=== PATIENT | female | born 1990 | race Caucasian/White ===

== ENCOUNTER 2016-10-30 19:38 | Emergency (ER) | payer OTHER ==
[~2016-10-30] VITALS: Ht 167.6 cm; Wt 117.5 kg
[~2016-10-30 19:38] MED LIST: RANI150 PO
[2016-10-30 19:42] VITALS: BP 129/80; PULSE 99; RESP 18; TEMP 98; O2SAT 98
[2016-10-30 20:03] VITALS: BP 120/80; PULSE 99; RESP 18; TEMP 98; O2SAT 98
[2016-10-30] MEDS ORDERED: PENI250T59 PO (20:03)
[2016-10-30] MEDS ORDERED: ONDANSETRON HCL 4 MG/2 ML VIAL IV PUSH ONE ×2 (20:15→21:45)
[2016-10-30] MEDS ORDERED: SODIUM CHLOR 0.9% 1000 ML INJ 1,000 ML IV ONE ×2 (20:15→23:00)
[2016-10-30] MEDS ORDERED: SODIUM CHLORIDE 0.9% FLUSH 10 ML FLUSH IVF PRN ×2 (20:15→21:15)
[2016-10-30 20:49] LABS: AUTOMATED NEUTROPHIL # 13.5 TH/MM3 (1.8-7.7); BASOPHIL # 0.3 TH/MM3 (0-0.2); EOSINOPHIL # 0.2 TH/MM3 (0-0.4); EOSINOPHIL % 1.4 % (0.0-4.0); HEMATOCRIT 45.8 % (35.0-46.0); LYMPH % 12.4 % (9.0-44.0); LYMPHOCYTE # 2.1 TH/MM3 (1.0-4.8); MEAN CELL VOLUME 79.8 FL (80.0-100.0); MEAN CORPUSCULAR HEMOGLOBIN 25.9 PG (27.0-34.0); MEAN CORPUSCULAR HGB CONC 32.5 % (32.0-36.0); MONO % 4.6 % (0.0-8.0); NEUT % 79.6 % (16.0-70.0); PLATELET COUNT 276 TH/MM3 (150-450); RED BLOOD COUNT 5.74 MIL/MM3 (4.00-5.30); RED CELL DISTRIBUTION WIDTH 12.5 % (11.6-17.2); WHITE BLOOD COUNT 16.9 TH/MM3 (4.0-11.0)
[2016-10-30 20:50] LABS: BLOOD, URINE NEG (NEG); GLUCOSE,URINE NEG (NEG); KETONE, URINE NEG (NEG); NITRITE,URINE NEG (NEG); PH, URINE 5.5 (5.0-8.5)
[2016-10-30 20:51] LABS: HEMO FLAGS DIFF FINAL
[2016-10-30 20:56] LABS: MUCUS URINE FEW /lpf (OCC); SQUAMOUS EPITHELIAL CELL URINE 0-5 /hpf (0-5); URINE COLOR YELLOW (YELLW/STRAW)
[2016-10-30 20:57] LABS: COMMENT (UR) CULT NOT INDICATED; CULTURE IF INDICATED CULT NOT INDICATED; WBC, URINE 0-2 /hpf (0-5)
[2016-10-30 20:58] LABS: POTASSIUM 3.5 MEQ/L (3.5-5.1)
[2016-10-30 21:01] LABS: BICARBONATE 21.7 MEQ/L (21.0-32.0)
--- NOTE | 2016-10-30 21:04 | PD ---
HPI Chief Complaint: GI Complaint Time Seen by Provider: 20:01 Travel History International Travel<30 days: No Contact w/Intl Traveler<30days: No Traveled to known affect area: No History of Present Illness HPI 26-year-old female presents to the emergency department for complaint of progressive worsening sore throat 3 weeks. Patient was recently seen at urgent care and prescribed amoxicillin for pharyngitis/sinusitis. Patient states that significant other has similar symptoms that resolved and child had similar symptoms also resolved. Patient was told to not have the flu. Patient states that she has had increasing pain with swallowing but does not report any difficulty with swallowing or any breathing issues and has had no hoarseness or stridor. Patient states that she feels like the soft tissue under her neck is swollen. Patient's had no fever or chills. Patient now with new complain of nausea and vomiting. She denies any abdominal pain. No diarrhea. Nausea and vomiting developed today complains of generalized weakness and fatigue. No report of dietary indiscretion well water ingestion or foreign travel. Pain is reported as 10 over 10 intensity. [id number] medications are provided any relief. Patient is unable to identify exacerbating or alleviating factors. Patient does report however that nausea vomiting began approximately 4 hours after eating a [employer] sandwich and vomited all of her stomach contents consistent with recent dietary intake no hematemesis coffee-ground emesis or bilious emesis. Patient has vomited 3-4 times. No hematemesis or coffee- ground emesis no bilious emesis. No diarrhea no melena hematochezia. Patient denies . Patient states she is very upset because at urgent care they told her all of her symptoms related to seasonal and environmental allergies and that she just wasn't aware of how bad her rhinosinusitis seasonal environmental allergy symptoms were. [facility] Past Medical History Narrative Medical Ovarian cyst, mononucleosis; tobacco use; nursing notes reviewed Hx Anticoagulant Therapy: No Cardiovascular Problems: No Chemotherapy: No Diabetes: No Diminished Hearing: No Respiratory: No Immunizations Current: Yes Tetanus Vaccination: Unknown Influenza Vaccination: No ?: Not LMP: 2 WEEKS AGO Ovarian Cysts: Yes Past Surgical History Hysterectomy: No Social History Alcohol Use: No Tobacco Use: Yes (1/2-1PPD) Substance Use: No Allergies-Medications (Allergen,Severity, Reaction): Coded Allergies: Erythromycin (Verified Allergy, Severe, HIVES, 10/30/16) Reported Meds & Prescriptions Reported Meds & Active Scripts Active Phenergan Supp (Promethazine HCl) 25 Mg Supp 25 Mg RECTAL Q6H PRN Zofran Odt (Ondansetron Odt) 4 Mg Tab 4 Mg SL Q6HR PRN Reported Penicillin Vk (Penicillin V Potassium) 250 Mg Tab 250 Mg PO Q6H Review of Systems Except as stated in HPI: all other systems reviewed are Neg General / Constitutional: No: Fever, Chills HENT: Positive: Sore Throat, No: Congestion Cardiovascular: No: Chest Pain or Discomfort Respiratory: No: Shortness of Breath Gastrointestinal: Positive: Nausea, Vomiting, No: Diarrhea, Abdominal Pain, Hematemesis, Hematochezia, Loss of Appetite Genitourinary: No: Urgency, Frequency, Dysuria, Pelvic Pain, Flank Pain Musculoskeletal: No: Myalgias, Arthralgias Skin: No Rash Neurologic: No: Weakness Hematologic/Lymphatic: No: Lymph Node Enlargement Physical Exam Narrative GENERAL: Well-developed well-nourished female in no acute distress no respiratory distress; no stridor no hoarseness. SKIN: Warm and dry. HEAD: Normocephalic. EYES: No scleral icterus. No injection or drainage. ENT: Mucous members moist airway is patent mild erythema and exudative change; bilateral tympanic membranes no redness no dullness to loss of landmarks no perforation NECK: Supple, trachea midline. No nuchal rigidity no meningismus. No JVD no submandibular or anterior neck mass except for some mild anterior cervical chain puller shoddy lymphadenopathy. CARDIOVASCULAR: Regular rate and rhythm without murmurs, gallops, or rubs. RESPIRATORY: Breath sounds equal bilaterally. No accessory muscle use. GASTROINTESTINAL: Abdomen soft, non-tender, nondistended. MUSCULOSKELETAL: No cyanosis, or edema. BACK: Nontender without obvious deformity. No CVA tenderness. Data Data Last Documented VS Vital Signs Date Time Temp Pulse Resp B/P Pulse Ox O2 Delivery O2 Flow Rate FiO2 10/30/16 23:20 98.0 69 18 129/75 96 Room Air Orders Basic Metabolic Panel (Bmp) (10/30/16 20:01) Complete Blood Count With Diff (10/30/16 20:01) Group A Rapid Strep Screen (10/30/16 20:01) Iv Access Insert/Monitor (10/30/16 20:01) Sodium Chloride 0.9% Flush (Ns Flush) (10/30/16 20:15) Sodium Chlor 0.9% 1000 Ml Inj (Ns 1000 M (10/30/16 20:15) Ondansetron Inj (Zofran Inj) (10/30/16 20:15) Urinalysis - C+S If Indicated (10/30/16 20:01) Ed Urine Pregnancytest Poc (10/30/16 20:01) Ct Soft Tiss Neck W Iv Cont (10/30/16 21:04) Sodium Chloride 0.9% Flush (Ns Flush) (10/30/16 21:15) Strep Culture (Group A) (10/30/16 20:35) Ondansetron Inj (Zofran Inj) (10/30/16 21:45) Iohexol 350 Inj (Omnipaque 350 Inj) (10/30/16 22:58) Promethazine Supp (Phenergan Supp) (10/30/16 23:00) Sodium Chlor 0.9% 1000 Ml Inj (Ns 1000 M (10/30/16 23:00) Ketorolac Inj (Toradol Inj) (10/30/16 23:00) Labs Laboratory Tests Test 10/30/16 10/30/16 20:30 20:40 White Blood Count 16.9 TH/MM3 Red Blood Count 5.74 MIL/MM3 Hemoglobin 14.9 GM/DL Hematocrit 45.8 % Mean Corpuscular Volume 79.8 FL Mean Corpuscular Hemoglobin 25.9 PG Mean Corpuscular Hemoglobin 32.5 % Concent Red Cell Distribution Width 12.5 % Platelet Count 276 TH/MM3 Mean Platelet Volume 8.5 FL Neutrophils (%) (Auto) 79.6 % Lymphocytes (%) (Auto) 12.4 % Monocytes (%) (Auto) 4.6 % Eosinophils (%) (Auto) 1.4 % Basophils (%) (Auto) 2.0 % Neutrophils # (Auto) 13.5 TH/MM3 Lymphocytes # (Auto) 2.1 TH/MM3 Monocytes # (Auto) 0.8 TH/MM3 Eosinophils # (Auto) 0.2 TH/MM3 Basophils # (Auto) 0.3 TH/MM3 CBC Comment DIFF FINAL Differential Comment Sodium Level 141 MEQ/L Potassium Level 3.5 MEQ/L Chloride Level 107 MEQ/L Carbon Dioxide Level 21.7 MEQ/L Anion Gap 12 MEQ/L Blood Urea Nitrogen 14 MG/DL Creatinine 0.88 MG/DL Estimat Glomerular Filtration 77 ML/MIN Rate Random Glucose 108 MG/DL Calcium Level 9.1 MG/DL Urine Color YELLOW Urine Turbidity CLEAR Urine pH 5.5 Urine Specific [place] 1.029 Urine Protein 30 mg/dL Urine Glucose (UA) NEG mg/dL Urine Ketones NEG mg/dL Urine Occult Blood NEG Urine Nitrite NEG Urine Bilirubin NEG Urine Leukocyte Esterase NEG Urine WBC 0-2 /hpf Urine Squamous Epithelial 0-5 /hpf Cells Urine Amorphous Sediment SMALL Urine Mucus FEW /lpf Microscopic Urinalysis Comment CULT NOT INDICATED MDM Medical Decision Making Medical Screen Exam Complete: Yes Emergency Medical Condition: Yes Medical Record Reviewed: Yes Interpretation(s) Last Impressions Neck CT 10/30/162103 Signed Impressions: Service Date/Time: Sunday, October 30, 2016 22:12 - CONCLUSION: Left jugulodigastric lymph node is prominent but nonspecific and measures 2.0 x 1.5 cm. Prominent tonsillar pillars bilaterally raising the possibility of tonsillitis. Clinical correlation is recommended. Adilson Rosas MD CBC & BMP Diagram 10/30/16 20:30 Vital Signs Date Time Temp Pulse Resp B/P Pulse Ox O2 Delivery O2 Flow Rate FiO2 10/30/16 23:20 98.0 69 18 129/75 96 Room Air 10/30/16 22:16 18 10/30/16 22:16 79 18 120/67 100 Room Air 10/30/16 21:15 75 18 110/64 98 Room Air 10/30/16 20:05 18 10/30/16 20:03 98.0 99 18 120/80 98 10/30/16 19:42 98.0 99 18 129/80 98 Differential Diagnosis Pharyngitis peritonsillar abscess mononucleosis retropharyngeal abscess viral syndrome rhinosinusitis food poisoning gastroenteritis dehydration uti Narrative Course IV access obtained specimens collected and sent for resulting IV fluids administered along with Zofran 4 mg IV Labs resulted and patient noted to have leukocytosis with left shift most likely reflective of multiple episodes of vomiting and volume hydration with some associated stress demargination Additional Zofran administered Imaging study ordered and resulted consistent with no abscess or mass findings c /w tonsillitis Patient with ongoing nausea and vomiting; patient reexamined abdomen is soft nontender no guarding or rebound; patient continues complaining of nausea and vomiting Phenergan suppository 25 mg DE as well as additional IV fluids administered Patient continues complaining of sore throat but states that is not bothering her as much as it did nausea and vomiting has resolved patient continues to deny any abdominal pain. It is 12 AM and patient is stable for outpatient management. Sepsis Criteria SIRS Criteria (2 or more): Heart rate over 90, WBC > 31112, < 4000 or > 10% bands Diagnosis Primary Impression: Tonsillitis Additional Impression: Food poisoning Qualified Code: T62.91XA - Food poisoning, accidental or unintentional, initial encounter Referrals: Primary Care Physician call for appointment Patient Instructions: General Instructions Departure Forms: Tests/Procedures, Work Release Special Instructions: no work x 1 day Additional Instructions: Increase fluid hydration Complete course of antibiotic as prescribed as needed for nausea and/or vomiting Follow-up with your primary care provider Take acetaminophen/Tylenol every 4 hours for fever 100.4F or greater or for minor pain; take ibuprofen/Advil/Motrin 800 mg as often as every 8 hours as needed for fever 100.4F or greater or for pain associated inflammation Use warm saltwater gargles, Chloraseptic spray, lozenges for symptomatically relief Return to the emergency department for a concerns or change condition No work times one day Med/Other Pt SpecificInfo: Prescription(s) given Scripts Promethazine Supp (Phenergan Supp)25 Mg Supp25 Mg RECTAL Q6H PRN (NAUSEA OR VOMITING) #7 SUPP Ref 0 Prov:Janna Paul MD 10/30/16 Ondansetron Odt (Zofran Odt)4 Mg Tab4 Mg SL Q6HR PRN (Nausea/Vomiting) #10 TAB Ref 0 Prov:Janna Paul MD 10/30/16 Disposition: 01 DISCHARGE HOME Condition: Stable Janna Paul MD Oct 30, 2016 21:04
[2016-10-30 21:15] VITALS: BP 110/64; PULSE 75; RESP 18; O2SAT 98
[2016-10-30 22:16] VITALS: BP 120/67; PULSE 79; RESP 18; O2SAT 100
--- NOTE | 2016-10-30 22:44 | RADHPO ---
EXAM DATE/TIME: 10/30/2016 22:12 [facility] COMPARISON: No previous studies available for comparison. INDICATIONS : Sore throat. IV CONTRAST: 60 cc Omnipaque 350 (iohexol) IV RADIATION DOSE: 15.67 CTDIvol (mGy) MEDICAL HISTORY : None SURGICAL HISTORY : None. ENCOUNTER: Initial ACUITY: 1 day PAIN SCALE: 5/10 LOCATION: neck TECHNIQUE: Volumetric scanning of the neck was performed. Using automated exposure control and adjustment of th e mA and/or kV according to patient size, radiation dose was kept as low as reasonably achievable to obtain optimal diagnostic quality images. FINDINGS: NASOPHARYNX: The nasopharyngeal airway has a normal configuration. No mucosal thickening or mass is seen. OROPHARYNX: The intrinsic muscles of the tongue are symmetric. The tonsillar pillars are prominent bilaterally. The prevertebral soft tissues are not thickened. LARYNX: The supraglottic, glottic, and infraglottic structures are intact. PARAPHARYNGEAL: The parapharyngeal space is intact. SALIVARY GLANDS: The parotid and submandibular glands are intact. LYMPH NODES: The left jugulodigastric lymph node is prominent but nonspecific and measures 2.0 x 1.5 cm. No necrot ic-appearing nodes. THYROID: Homogeneous enhancement without evidence of nodule. BONES: Unremarkable. CONCLUSION: Left jugulodigastric lymph node is prominent but nonspecific and measures 2.0 x 1.5 c m. Prominent tonsillar pillars bilaterally raising the possibility of tonsillitis. Clinical correlati on is recommended. Adilson Rosas MD on October 30, 2016 at 22:37 Board Certified Radiologist. This report was verified electronically.
[2016-10-30] MEDS ORDERED: IOHEXOL 350 MG/ML 10 ML VIAL (for RAD DIAG) IV ONE (22:58)
[2016-10-30] MEDS ORDERED: KETOROLAC TROMETHAMINE 30 MG/ML (IVP) VIAL IV PUSH ONE (23:00)
[2016-10-30] MEDS ORDERED: PROMETHAZINE HCL 25 MG SUPP RECTAL ONE (23:00)
[2016-10-30 23:20] VITALS: BP 129/75; PULSE 69; RESP 18; TEMP 98; O2SAT 96
[2016-10-30] MEDS ORDERED: PROM1SUP7 RECTAL (23:46)
[2016-10-30] MEDS ORDERED: ZOFR4TAB3 SL (23:46)
[2016-10-31 00:01] VITALS: RESP 18
[2016-10-31 00:29] VITALS: BP 132/86
== END 2016-10-31 00:30 | disposition home or self-care (01) ==
LOC: PHED 19:38
DX: J03.90 Acute tonsillitis, unspecified (principal); F17.200 Nicotine dependence, unspecified, uncomplicated; T62.91XA Toxic effect of unspecified noxious substance eaten as food, accidental (unintentional), initial encounter
CPT/HCPCS: 70491; 80048; 81001; 84703; 85025; 87081; 87880; 96361; 96374; 96375; 96376; 99285; J1885; J2405; J7030; Q9967